=== PATIENT | male | born 1985 | race Caucasian/White ===

== ENCOUNTER → 2017-08-30 | Outpatient (REF) | payer OTHER | LOC: M LAB REF 17:15 | DX: J02.9 Acute pharyngitis, unspecified (principal) ==

== ENCOUNTER 2018-02-22 08:05 | Emergency (ER) | payer BC, OTHER ==
[2018-02-22] MEDS: ERYTHROMYCIN OPHTH OINT OD (08:54)
[2018-02-22] MEDS: AUGMENTIN 875 MG TAB PO (08:54)
== END 2018-02-22 08:58 | disposition home or self-care (01) ==
LOC: M ED 08:05
DX: H57.10 Ocular pain, unspecified eye (principal); J01.90 Acute sinusitis, unspecified; G51.9 Disorder of facial nerve, unspecified; K08.89 Other specified disorders of teeth and supporting structures; R51 Headache; Z72.0 Tobacco use
CPT/HCPCS: 99282

== ENCOUNTER 2018-02-25 07:16 | Emergency (ER) | payer BC, OTHER | END 2018-02-25 09:08 | disposition home or self-care (01) | LOC: M ED 07:16 | DX: G50.0 Trigeminal neuralgia (principal); F17.210 Nicotine dependence, cigarettes, uncomplicated | CPT/HCPCS: 99283 ==

== ENCOUNTER 2019-11-11 13:53 | Emergency (ER) | payer BC, OTHER ==
[~2019-11-11] VITALS: Ht 177.8 cm; Wt 106.0 kg
[~2019-11-11 13:53] MED LIST: AUGM875T28 PO; ERYT5OIN25 OD; IBUP1TAB6 PO; NEUR600T PO; PRED20TA
[2019-11-11] MEDS ORDERED: MULTCAP PO (14:46)
[2019-11-11 15:09] LABS: BASO # 0.1 10^3/uL (0.0-0.2); BASO % 1.2 % (0.0-1.0); EOS # 0.1 10^3/uL (0.0-0.5); EOS % 1.9 % (0.0-3.0); HEMATOCRIT 45.4 % (42.0-52.0); HEMOGLOBIN 15.5 g/dl (13.5-17.5); MEAN CORPUSCULAR HEMOGLOBIN 30.4 pg (27.0-33.0); MEAN CORPUSCULAR HGB CONC 34.1 g/dl (32.0-36.5); MONO # 0.6 10^3/uL (0.0-0.8); MONO % 10.5 % (0.0-5.0); NEUTROPHILS # 3.1 10^3/uL (1.5-8.5); NEUTROPHILS % 52.2 % (36.0-66.0); PLATELET COUNT, AUTOMATED 224 10^3/uL (150-450); WHITE BLOOD COUNT 5.8 10^3/uL (4.0-10.0)
[2019-11-11 15:22] LABS: INR 1.02; PROTHROMBIN TIME 13.1 SECONDS (11.8-14.0)
[2019-11-11 15:25] LABS: D-DIMER QUANT 297.3 ng/ml (<500)
[2019-11-11 15:37] LABS: ALBUMIN 4.3 GM/DL (3.2-5.2); ALT/SGPT 27 U/L (12-78); BILIRUBIN,DIRECT < 0.1 MG/DL (0.0-0.2); BILIRUBIN,TOTAL 0.4 MG/DL (0.2-1.0); BLOOD UREA NITROGEN 15 MG/DL (7-18); CALCIUM LEVEL 9.7 MG/DL (8.5-10.1); CARBON DIOXIDE LEVEL 25 MEQ/L (21-32); CHLORIDE LEVEL 105 MEQ/L (98-107); CK-MB VALUE MASS 1.2 NG/ML (<3.6); CPK CREATINE PHOSPHOKINASE 238 U/L (39-308); CREATININE FOR GFR 0.89 MG/DL (0.70-1.30); GLOMERULAR FILTRATION RATE > 60.0 (>60); GLUCOSE, FASTING 89 MG/DL (70-100); LIPASE 74 U/L (73-393); POTASSIUM SERUM 4.3 MEQ/L (3.5-5.1); SODIUM LEVEL 139 MEQ/L (136-145); TOTAL PROTEIN 7.9 GM/DL (6.4-8.2); TROPONIN I < 0.02 NG/ML (< 0.10)
--- NOTE | 2019-11-11 15:47 | REP ---
CHEST X-RAY: Two views. HISTORY: Chest pain. FINDINGS: There is a linear zone of plate-like atelectasis overlying the anterior heart border at the lung bases on the lateral film. This is not seen on the frontal view. The pleural angles are sharp. Lung ashby are otherwise clear. Heart is not enlarged. Pulmonary vasculature is not increased. No bony abnormality is seen. IMPRESSION: There is a linear zone of plate-like atelectasis in either the right middle lobe or lingular segment left upper lobe, overlying the heart on the lateral view only. Otherwise no active disease. Electronically Signed by Darek Pinedo MD 11/11/2019 04:15 P
[2019-11-11] MEDS ORDERED: NAPR-837 PO (16:41)
[2019-11-11 16:45] VITALS: BP 122/58
--- NOTE | 2019-11-11 22:10 | ECGEPIP ---
[facility] - ED Test Date: 2019-11-11 Pat Name: ILYA RIVERA Department: Room: - Gender: Male [employer]: Jassi HANNON : 1985 Requested By: Aneudy Wall Order Number: [id number] Reading MD: Aneudy Goldstein Measurements Intervals [place] Rate: 71 P: 57 WV: 146 QRS: 46 QRSD: 98 T: 29 QT: 389 QTc: 424 Interpretive Statements SINUS RHYTHM NO PRIORS FOR COMPARISON Electronically Signed on 11-11-2019 22:09:38 EDT by Aneudy Goldstein
== END 2019-11-11 17:03 | disposition home or self-care (01) ==
LOC: M ED 13:53
DX: R07.89 Other chest pain (principal); Z79.899 Other long term (current) drug therapy; Z87.891 Personal history of nicotine dependence

== ENCOUNTER → 2019-12-22 | Outpatient (CLI) | payer BC, OTHER ==
[~2019-12-22] MED LIST changes: +MULTCAP PO; +NAPR-837 PO
[2019-12-22 13:10] LABS: CHOLESTEROL RISK RATIO 4.673 (<5)
== END ==
LOC: M PLALAB 08:58
PROVIDERS: ATTEND Internal Medicine Cardiovascular Disease
DX: R07.2 Precordial pain (principal)

== ENCOUNTER → 2022-09-04 | Outpatient (REF) | payer OTHER | LOC: M SMT 13:01 | PROVIDERS: ATTEND Urology | DX: Z30.2 Encounter for sterilization (principal) ==

== ENCOUNTER → 2023-05-08 | Outpatient (CLI) | payer BC, OTHER ==
[2023-05-08 12:43] LABS: HEMATOCRIT 45.7 % (42.0-52.0); HEMOGLOBIN 15.2 g/dl (13.5-17.5); MEAN CORPUSCULAR HEMOGLOBIN 30.6 pg (27.0-33.0); MEAN CORPUSCULAR HGB CONC 33.3 g/dl (32.0-36.5); MEAN CORPUSCULAR VOLUME 92.1 fl (80.0-96.0); PLATELET COUNT, AUTOMATED 233 10^3/uL (150-450); RED BLOOD COUNT 4.96 10^6/uL (4.30-6.10); WHITE BLOOD COUNT 7.3 10^3/uL (4.0-10.0)
[2023-05-08 13:23] LABS: ALBUMIN 4.2 G/DL (3.2-5.2); ALKALINE PHOSPHATASE 82 U/L (46-116); ALT/SGPT 24 U/L (7.0-40); AST/SGOT 14 U/L (<34); BILIRUBIN,TOTAL 0.4 MG/DL (0.3-1.2); BLOOD UREA NITROGEN 14 MG/DL (9-23); CALCIUM LEVEL 9.9 MG/DL (8.5-10.1); CARBON DIOXIDE LEVEL 28 MMOL/L (20-31); CHLORIDE LEVEL 105 MMOL/L (98-107); GLOMERULAR FILTRATION RATE > 60.0 (>60); GLUCOSE, FASTING 74 MG/DL (60-100); POTASSIUM SERUM 4.2 MMOL/L (3.5-5.1); SODIUM LEVEL 139 MMOL/L (136-145); TOTAL PROTEIN 7.3 G/DL (5.7-8.2)
== END ==
LOC: M WUC 10:42
PROVIDERS: ATTEND Internal Medicine
DX: R53.83 Other fatigue (principal)

== ENCOUNTER → 2025-01-27 | Outpatient (CLI) | payer OTHER | LOC: M RAD 15:50 | PROVIDERS: ATTEND Internal Medicine | DX: N45.1 Epididymitis (principal); N50.3 Cyst of epididymis ==